=== PATIENT | male | born 1965 | race Caucasian/White ===

== ENCOUNTER 2018-10-12 08:46 | Emergency (ER) | payer OTHER ==
[~2018-10-12] VITALS: Ht 188 cm; Wt 96.3 kg
[2018-10-12 09:10] LABS: ABSOLUTE EOSINOPHILS 0.2 thou/uL (0.0-0.7); ABSOLUTE LYMPHOCYTES 2.4 thou/uL (0.8-5.3); ABSOLUTE MONOCYTES 0.6 thou/uL (0.0-1.2); BASOPHILS 0.8 %; EOSINOPHILS 2.7 %; HEMATOCRIT 39.6 % (42.0-52.0); HEMOGLOBIN 13.3 gm/dL (14.0-18.0); LYMPHOCYTES 38.6 %; MCH 29.4 pg (26.0-34.0); MCHC 33.5 g/dL (28.0-37.0); MCV 87.8 fL (80.0-100.0); MONOCYTES 9.6 %; MPV 7.5 fl. (7.2-11.1); NUCLEATED RBCS 0 /100WBC; PLATELET COUNT* 377 thou/uL (150-400); POLYS 48.3 %; RBC 4.51 mil/uL (4.50-6.00); RDW-CV 15.3 % (10.5-14.5); WBC 6.3 thou/uL (4.0-11.0)
[2018-10-12 09:14] LABS: ANION GAP 9 mmol/L (7-16); BUN 15 mg/dL (7-18); CHLORIDE 107 mmol/L (98-107); CO2 28 mmol/L (21-32); CREATININE 1.3 mg/dL (0.6-1.3); GLUCOSE 137 mg/dL (70-99); POTASSIUM 3.8 mmol/L (3.5-5.1); SODIUM 144 mmol/L (136-145)
[2018-10-12 09:19] LABS: PROTIME 10.4 Seconds (9.20-11.50)
[2018-10-12 09:24] LABS: ALBUMIN 3.4 g/dL (3.4-5.0); ALKALINE PHOSPHATASE 83 U/L (46-116); MAGNESIUM 1.9 mg/dL (1.8-2.4); SGOT 22 U/L (15-37); SGPT 25 U/L (30-65); TOTAL BILIRUBIN 0.3 mg/dL (<0.1-1.0); TOTAL PROTEIN 6.8 g/dL (6.4-8.2); TROPONIN-I LEVEL <0.06 ng/mL (<0.06)
[2018-10-12 09:32] LABS: BE 1.5 mmol/L (-2 to +3); PCO2 26.4 mmHg (35.0-45.0); PO2 70.1 mmHg (75.0-100.0); pH 7.549 (7.340-7.450)
[2018-10-12 10:02] LABS: URINE BILIRUBIN NEGATIVE (Negative); URINE BLOOD NEGATIVE (Negative); URINE CLARITY CLEAR; URINE COLOR DARK YELLOW; URINE GLUCOSE-RANDOM NEGATIVE (Negative); URINE KETONES TRACE (Negative); URINE LEUKOCYTES-REFLEX NEGATIVE (Negative); URINE NITRITE-REFLEX NEGATIVE (Negative); URINE PROTEIN NEGATIVE (Negative); URINE SPECIFIC GRAVITY >= 1.030 (1.005-1.030); URINE UROBILINOGEN 0.2 E.U./dl (0.2-1.0)
[2018-10-12 10:10] LABS: AMP/METHAMP POSITIVE (Negative); BARBITURATES Negative (Negative); BENZODIAZEPINES Negative (Negative); COCAINE Negative (Negative); METHADONE Negative (Negative); OPIATES Negative (Negative); PCP Negative (Negative); THC POSITIVE (Negative)
--- NOTE | 2018-10-12 10:55 | EKG ---
[place] [address] ELECTROCARDIOGRAM REPORT Name: CHINEDU SAINI Room: [facility]#: [id number] Admission: 10/12/18 Attend Phys: Discharge: Date of : 61 Report #: [id number] THIS REPORT FOR: //name// [facility] ED Test Date: 2018-10-12 Test Time: 08:50:25 Pat Name: CHINEDU SAINI Department: Room: Gender: M [employer] Claims [employer]st: JAIME : 1965 Requested By: Navya Ramos Order Number: [id number] MD: Ruslan Robertson Measurements Intervals [place] Rate: 66 P: 28 [place]: 206 QRS: 76 QRSD: 119 T: 54 QT: 459 QTc: 481 Interpretive Statements Sinus rhythm Borderline prolonged [place] interval Incomplete right bundle branch block No previous ECG available for comparison Electronically Signed On 10-12-2018 10:55:08 CDT by Ruslan Robertson [email or web address] <ELECTRONICALLY SIGNED> By: Ruslan Robertson MD, [facility] 10/12/18 1055 0850 0850 Ruslan Robertson MD, FACC /EPI
[2018-10-12 12:19] VITALS: BP 112/72
== END 2018-10-12 12:21 | disposition home or self-care (01) ==
LOC: EDBD 08:46 → M.ERS 08:46
PROVIDERS: Personal Emergency Response Attendant
DX: R07.89 Other chest pain (principal); F15.10 Other stimulant abuse, uncomplicated; R42 Dizziness and giddiness